=== PATIENT | female | born 1990 | race Caucasian/White ===

== ENCOUNTER 2017-04-17 07:26 | Emergency (ER) | payer OTHER ==
[~2017-04-17] VITALS: Ht 149.9 cm; Wt 56.7 kg
[2017-04-17 07:55] LABS: URINE BILIRUBIN NEGATIVE (Negative); URINE BLOOD 2+ (Negative); URINE COLOR YELLOW; URINE GLUCOSE-RANDOM* NEGATIVE (Negative); URINE KETONES TRACE (Negative); URINE PROTEIN (DIPSTICK) TRACE (Negative); URINE SPECIFIC GRAVITY >= 1.030 (1.003-1.035); URINE UROBILINOGEN 0.2 E.U./dl (0.2-1.0)
[2017-04-17 07:56] LABS: URINE LEUKOCYTES-REFLEX 2+ (Negative)
[2017-04-17 08:14] LABS: SQUAMOUS >10 Many /LPF (0-3)
[2017-04-17 08:15] LABS: CASTS None Seen /LPF (None Seen); CRYSTALS None Seen /LPF (None Seen)
[2017-04-17 08:16] LABS: URINE RBC 0-2 Rare /HPF (0-2)
[2017-04-17 08:28] LABS: HEMATOCRIT 37.3 % (37.0-47.0); HEMOGLOBIN 13.1 gm/dL (12.0-15.0); MCV 85.8 fL (80.0-100.0); RBC 4.36 mil/uL (4.20-5.00); RDW 12.1 % (10.5-14.5); WBC 9.4 thou/uL (4.0-11.0)
[2017-04-17 08:37] LABS: CALCIUM 9.3 mg/dL (8.5-10.1); CREATININE 0.7 mg/dL (0.6-1.0); POTASSIUM 3.9 mmol/L (3.5-5.1)
[2017-04-17] MEDS ORDERED: KEFLEX500 MG PO (10:04)
[2017-04-17 10:32] VITALS: BP 126/76
[2017-04-20 14:09] LABS: CHLAMYDIA TRACHOMATIS-PCR Negative (Negative); NEISSERIA GONORRHEA-PCR Negative (Negative)
== END 2017-04-17 10:38 | disposition home or self-care (01) ==
LOC: ER 07:26
PROVIDERS: Emergency Medicine
DX: O20.0 Threatened abortion (principal); Z3A.01 Less than 8 weeks gestation of pregnancy; O23.41 Unspecified infection of urinary tract in pregnancy, first trimester